=== PATIENT | female | born 1975 | race Caucasian/White ===

== ENCOUNTER 2017-07-20 13:03 | Emergency (ER) | payer MEDICAID, OTHER ==
[~2017-07-20] VITALS: Ht 165.1 cm; Wt 60.0 kg
[~2017-07-20 13:03] MED LIST: CEPH250C PO; CEPH500C5 PO; CLOT15CR5 TP; CYAN-19 PO; FOLI1TAB16 PO; IBUP-1985 PO; LANS30CA56 PO; METO-292 PO; NAPR-1154 PO; PROM25TA14 PO
[2017-07-20 13:24] VITALS: BP 134/76
[2017-07-20] MEDS ORDERED: PERM60CR19 TP (14:47)
[2017-07-20] MEDS ORDERED: AZIT-57 PO (14:47)
[2017-07-20] MEDS ORDERED: BENZ-16 PO (14:47)
[2017-07-20] MEDS ORDERED: IBUP-1984 PO (14:47)
== END 2017-07-20 15:34 | disposition home or self-care (01) ==
LOC: ER 13:04
DX: J40 Bronchitis, not specified as acute or chronic (principal); R10.32 Left lower quadrant pain; G89.29 Other chronic pain; R21 Rash and other nonspecific skin eruption; Z59.0 Homelessness; Z79.899 Other long term (current) drug therapy
CPT/HCPCS: 99283

== ENCOUNTER → 2017-11-09 | Emergency (ER) | payer MEDICAID, OTHER ==
[~2017-11-09] VITALS: Ht 175.3 cm; Wt 59.1 kg
[~2017-11-09] MED LIST changes: -CEPH500C5 PO; +NO HOME MEDS; +acetaminophen 325mg tablet PO ONE
[2017-11-09 09:10] VITALS: BP 93/73
[2017-11-09 10:22] LABS: URINE HCG NEGATIVE (NEG)
[2017-11-09 10:23] LABS: CLARITY,URINE Cloudy (Clear); COLOR,URINE Dark Yellow (Yellow); GLUCOSE, URINE Negative (Neg); KETONES,URINE 15 mg/dl (Neg); LEUKOCYTE ESTERASE ,URINE Trace (Neg); NITRITES, URINE Negative (Neg); OCCULT BLOOD,URINE Negative (Neg); PH,URINE 5.5 (4.8-8.0); PROTEIN,URINE Trace mg/dl (Neg)
[2017-11-09 10:25] LABS: UA COLLECTION TYPE CLN CATCH MIDSTREAM
[2017-11-09 10:31] LABS: AMORPHOUS URATES 2+; BACTERIA,URINE 1+ /HPF (Neg); MUCUS STRANDS MANY /LPF (Neg); RBC,URINE NONE SEEN /HPF (0-2); SQUAMOUS EPITHELIAL CELL,UR MANY /LPF (FEW); WBC CLUMPS,URINE FEW /HPF (NEGATIVE)
[2017-11-09 10:33] LABS: URINE AMPHETAMINE SCREEN POSITIVE (Neg); URINE BARBITUATE SCREEN NEGATIVE (Neg); URINE BENZODIAZEPINES SCREEN NEGATIVE (Neg); URINE CANNABINOID SCREEN NEGATIVE (Neg); URINE COCAINE SCREEN NEGATIVE (Neg); URINE METHADONE SCREEN NEGATIVE (Neg); URINE OPIATE SCREEN NEGATIVE (Neg); URINE PHENCYCLIDINE SCREEN NEGATIVE (Neg)
== END | disposition left against medical advice (07) ==
LOC: ER 08:01
DX: F29 Unspecified psychosis not due to a substance or known physiological condition (principal); F15.10 Other stimulant abuse, uncomplicated; M79.671 Pain in right foot; M79.672 Pain in left foot; L29.9 Pruritus, unspecified; R51 Headache; Z98.51 Tubal ligation status; Z90.710 Acquired absence of both cervix and uterus; Z98.890 Other specified postprocedural states; Z59.0 Homelessness; Z56.0 Unemployment, unspecified
CPT/HCPCS: 80305; 81001; 81025; 99284

== ENCOUNTER 2018-06-20 23:57 | Emergency (ER) | payer MEDICAID ==
[~2018-06-20] VITALS: Ht 162.6 cm; Wt 65.0 kg
[~2018-06-20 23:57] MED LIST changes: -CEPH250C PO; -CLOT15CR5 TP; -CYAN-19 PO; -FOLI1TAB16 PO; -IBUP-1985 PO; -LANS30CA56 PO; -METO-292 PO; -NAPR-1154 PO; -PROM25TA14 PO; -acetaminophen 325mg tablet PO ONE
[2018-06-21 00:01] VITALS: BP 126/72
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
[2018-06-21] MEDS ORDERED: amoxicillin 250mg capsule PO ONE (01:20)
[2018-06-21] MEDS ORDERED: ondansetron 4mg rapidly disintigrating tab PO ONE (01:20)
[2018-06-21] MEDS ORDERED: ACET-2119 PO (01:24)
[2018-06-21] MEDS ORDERED: AMOX500C2 PO (01:24)
--- NOTE | 2018-06-21 01:24 | NUR ---
[facility] report [id number]
[2018-06-21] MEDS: ibuprofen tablet 400 MG TABLET PO ONE ×2 (01:43→01:47)
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
[2018-06-21 01:50] LABS: URINE HCG NEGATIVE (NEG)
[2018-06-21 01:57] LABS: CLARITY,URINE CLOUDY (Clear); COLOR,URINE YELLOW (Yellow); GLUCOSE, URINE NEGATIVE (Neg); KETONES,URINE 15 mg/dl (Neg); LEUKOCYTE ESTERASE ,URINE TRACE (Neg); NITRITES, URINE NEGATIVE (Neg); OCCULT BLOOD,URINE NEGATIVE (Neg); PROTEIN,URINE TRACE mg/dl (Neg); UROBILINOGEN,URINE 0.2 E.U/dL (0.2-1.0)
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
[2018-06-21 02:06] LABS: UA COLLECTION TYPE CLN CATCH MIDSTREAM
[2018-06-21 02:08] LABS: BACTERIA,URINE FEW /HPF (Neg); RBC,URINE 0-2 /HPF (0-2); SQUAMOUS EPITHELIAL CELL,UR MODERATE /LPF (FEW)
[2018-06-21 02:53] LABS: URINE AMPHETAMINE SCREEN POSITIVE (Neg); URINE BARBITUATE SCREEN NEGATIVE (Neg); URINE BENZODIAZEPINES SCREEN NEGATIVE (Neg); URINE CANNABINOID SCREEN POSITIVE (Neg); URINE COCAINE SCREEN NEGATIVE (Neg); URINE METHADONE SCREEN NEGATIVE (Neg); URINE OPIATE SCREEN POSITIVE (Neg); URINE PHENCYCLIDINE SCREEN NEGATIVE (Neg)
== END 2018-06-21 02:05 | disposition home or self-care (01) ==
LOC: ER 23:58
DX: K08.89 Other specified disorders of teeth and supporting structures (principal); Z59.0 Homelessness; F15.90 Other stimulant use, unspecified, uncomplicated; Z90.710 Acquired absence of both cervix and uterus; Z98.51 Tubal ligation status; Z98.890 Other specified postprocedural states; Z79.899 Other long term (current) drug therapy; Z56.0 Unemployment, unspecified
CPT/HCPCS: 80305; 81001; 81025; 87088; 99283

== ENCOUNTER 2023-01-19 19:19 | Emergency (ER) | payer MEDICAID ==
[~2023-01-19] VITALS: Ht 167.6 cm; Wt 57.0 kg
[~2023-01-19 19:19] MED LIST changes: +ACET-2119 PO
[2023-01-20 02:54] VITALS: BP 101/66; PULSE 73; RESP 16; TEMP 97.8; O2SAT 99
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
== END 2023-01-20 05:29 | disposition home or self-care (01) ==
LOC: ER 19:19
DX: L98.8 Other specified disorders of the skin and subcutaneous tissue (principal); F15.90 Other stimulant use, unspecified, uncomplicated; Z91.410 Personal history of adult physical and sexual abuse; Z79.1 Long term (current) use of non-steroidal anti-inflammatories (NSAID); Z98.51 Tubal ligation status; Z90.710 Acquired absence of both cervix and uterus
CPT/HCPCS: 99283

== ENCOUNTER 2023-06-14 15:04 | Emergency (ER) | payer MEDICAID ==
[~2023-06-14] VITALS: Ht 175.3 cm; Wt 60.0 kg
[2023-06-14 15:56] LABS: BASOPHILS % (AUTO) 0.7 % (0-1); EOSINOPHILS # (AUTO) 0.1 X10'3 (0-0.9); EOSINOPHILS % (AUTO) 2.3 % (0-6); HEMATOCRIT 44.3 % (35.0-45.0); LYMPHOCYTES # (AUTO) 2.6 X10'3 (1.1-4.8); LYMPHOCYTES % (AUTO) 41.8 % (21-51); MEAN CORPUSCULAR HGB CONC 33.8 g/dL (33.0-36.5); MEAN CORPUSCULAR VOLUME 94.9 FL (78-98); MEAN PLATELET VOLUME 8.3 FL (7.4-10.4); MONOCYTES # (AUTO) 0.6 X10'3 (0-0.9); MONOCYTES % (AUTO) 9.4 % (2-12); NEUTROPHILS # (AUTO) 2.8 X10'3 (1.8-7.7); NEUTROPHILS % (AUTO) 45.8 % (42-75); PLATELET COUNT 246 X10'3 (140-440); RED BLOOD COUNT 4.67 X10'6 (4.20-5.60); RED CELL DISTRIBUTION WIDTH 13.4 % (11.5-14.5); WHITE BLOOD COUNT 6.2 X10'3 (4.5-11.0)
[2023-06-14 16:17] LABS: ALANINE AMINOTRANSFERASE 15 U/L (12-78); ALBUMIN 3.7 G/DL (3.4-5.0); ALKALINE PHOSPHATASE 68 IU/L (46-116); ANION GAP 10 (8-16); ASPARTATE AMINO TRANSFERASE 16 U/L (10-37); BILIRUBIN,TOTAL 0.3 MG/DL (0.1-1.0); BLOOD UREA NITROGEN 13 MG/DL (7-18); BUN/CREATININE RATIO 16.5 (10.0-20.0); CALCIUM 8.9 MG/DL (8.5-10.1); CHLORIDE 106 MMOL/L (99-107); CREATININE 0.79 MG/DL (0.40-0.90); GLUCOSE 93 MG/DL (70-104); POTASSIUM 3.7 MMOL/L (3.5-5.1); SODIUM 141 MMOL/L (135-145); TOTAL CARBON DIOXIDE 25.2 MMOL/L (24-32); TOTAL PROTEIN 7.3 G/DL (6.4-8.2); eCRCL 83 ML/MIN; eGFR 78 ML/MIN
[2023-06-14 16:20] LABS: ETHANOL < 10 MG/DL (<10); THYROID STIMULATING HORMONE 1.56 ulU/ml (0.34-4.50)
[2023-06-14 19:47] LABS: URINE HCG NEGATIVE (NEG)
[2023-06-14 19:48] LABS: BILIRUBIN,URINE NEGATIVE (Neg); CLARITY,URINE CLOUDY (Clear); COLOR,URINE YELLOW (Yellow); GLUCOSE, URINE NEGATIVE (Neg); KETONES,URINE TRACE mg/dl (Neg); LEUKOCYTE ESTERASE ,URINE TRACE (Neg); NITRITES, URINE NEGATIVE (Neg); OCCULT BLOOD,URINE NEGATIVE (Neg); PH,URINE 5.5 (4.8-8.0); PROTEIN,URINE NEGATIVE (Neg); UROBILINOGEN,URINE 0.2 E.U/dL (0.2-1.0)
[2023-06-14 19:58] LABS: UA COLLECTION TYPE CLN CATCH MIDSTREAM
[2023-06-14 19:59] LABS: MUCUS STRANDS MANY /LPF (Neg); SQUAMOUS EPITHELIAL CELL,UR MODERATE /LPF (FEW)
[2023-06-14 20:01] LABS: BACTERIA,URINE 3+ /HPF (Neg); CAL OXALATE CRYSTALS 4+ /HPF (NEGATIVE); RBC,URINE NONE SEEN /HPF (0-2)
[2023-06-14 20:03] LABS: TRICHOMONAS,URINE FEW /HPF (NEGATIVE)
[2023-06-14 20:10] LABS: URINE AMPHETAMINE SCREEN POSITIVE (Neg); URINE BARBITUATE SCREEN NEGATIVE (Neg); URINE BENZODIAZEPINES SCREEN NEGATIVE (Neg); URINE CANNABINOID SCREEN NEGATIVE (Neg); URINE COCAINE SCREEN NEGATIVE (Neg); URINE METHADONE SCREEN NEGATIVE (Neg); URINE OPIATE SCREEN NEGATIVE (Neg); URINE PHENCYCLIDINE SCREEN NEGATIVE (Neg)
[2023-06-15 06:20] VITALS: BP 117/65; PULSE 80; TEMP 98.2; O2SAT 100
[2023-06-15 08:25] VITALS: RESP 16
[2023-06-15] MEDS ORDERED: CefTRIAXone 1000mg IM Kit (w/lidocaine diluent) IM ONE (10:55)
[2023-06-15] MEDS ORDERED: azithromycin 250mg tablet PO ONE (10:55)
[2023-06-15] MEDS ORDERED: DIF150T PO (10:58)
[2023-06-15] MEDS ORDERED: METR-159 PO (10:58)
== END 2023-06-15 13:40 | disposition home or self-care (01) ==
LOC: ER 15:07
DX: R45.850 Homicidal ideations (principal); N89.8 Other specified noninflammatory disorders of vagina; Z20.822 Contact with and (suspected) exposure to COVID-19; F15.10 Other stimulant abuse, uncomplicated; F29 Unspecified psychosis not due to a substance or known physiological condition; Z79.899 Other long term (current) drug therapy
CPT/HCPCS: 36415; 80053; 80305; 80320; 81001; 81025; 84443; 85025; 87811; 96372; 99285; J0696

== ENCOUNTER 2023-07-22 21:47 | Emergency (ER) | payer MEDICAID ==
[~2023-07-22] VITALS: Ht 167.6 cm; Wt 54.5 kg
[2023-07-22 21:50] VITALS: TEMP 98
[2023-07-22 22:34] VITALS: BP 109/68; PULSE 86; RESP 15; O2SAT 98
[2023-07-22 22:43] LABS: BASOPHILS % (AUTO) 0.5 % (0-1); EOSINOPHILS # (AUTO) 0.2 X10'3 (0-0.9); EOSINOPHILS % (AUTO) 2.1 % (0-6); HEMATOCRIT 36.4 % (35.0-45.0); HEMOGLOBIN 12.5 g/dl (12.0-16.0); LYMPHOCYTES # (AUTO) 1.5 X10'3 (1.1-4.8); LYMPHOCYTES % (AUTO) 17.4 % (21-51); MEAN CORPUSCULAR HEMOGLOBIN 32.1 PG (27.0-31.0); MEAN CORPUSCULAR HGB CONC 34.3 g/dL (33.0-36.5); MEAN CORPUSCULAR VOLUME 93.6 FL (78-98); MEAN PLATELET VOLUME 7.6 FL (7.4-10.4); MONOCYTES # (AUTO) 0.7 X10'3 (0-0.9); MONOCYTES % (AUTO) 7.7 % (2-12); NEUTROPHILS # (AUTO) 6.4 X10'3 (1.8-7.7); NEUTROPHILS % (AUTO) 72.3 % (42-75); PLATELET COUNT 335 X10'3 (140-440); RED BLOOD COUNT 3.89 X10'6 (4.20-5.60); RED CELL DISTRIBUTION WIDTH 13.7 % (11.5-14.5); WHITE BLOOD COUNT 8.8 X10'3 (4.5-11.0)
[2023-07-22 22:55] LABS: ALBUMIN 2.5 G/DL (3.4-5.0); ANION GAP 7 (8-16); BLOOD UREA NITROGEN 5 MG/DL (7-18); BUN/CREATININE RATIO 7.2 (10.0-20.0); CHLORIDE 112 MMOL/L (99-107); CREATININE 0.69 MG/DL (0.40-0.90); GLUCOSE 116 MG/DL (70-104); POTASSIUM 3.8 MMOL/L (3.5-5.1); PRO BRAIN NATRIURETIC PEPTIDE 477 PG/ML (0-125); SODIUM 145 MMOL/L (135-145); TOTAL CARBON DIOXIDE 25.7 MMOL/L (24-32); eCRCL 87 ML/MIN; eGFR > 90 ML/MIN
== END 2023-07-22 23:04 | disposition home or self-care (01) ==
LOC: ER 21:48
DX: R06.02 Shortness of breath (principal); F15.90 Other stimulant use, unspecified, uncomplicated; Z90.710 Acquired absence of both cervix and uterus; Z98.51 Tubal ligation status
CPT/HCPCS: 36415; 71045; 80048; 83880; 84484; 85025; 93005; 99285

== ENCOUNTER 2023-09-20 03:47 | Emergency (ER) | payer MEDICAID ==
[~2023-09-20] VITALS: Ht 170.2 cm; Wt 54.5 kg
[~2023-09-20 03:47] MED LIST changes: -ACET-2119 PO
[2023-09-20 03:53] VITALS: BP 134/81; PULSE 79; RESP 16; TEMP 98.1; O2SAT 98
[2023-09-20] MEDS ORDERED: MICO45CR73 VG (05:03)
[2023-09-20] MEDS: ondansetron 4mg rapidly disintigrating tab PO ONE (05:12)
[2023-09-20] MEDS: CefTRIAXone 1000mg IM Kit (w/lidocaine diluent) IM ONE (05:12)
[2023-09-20] MEDS: azithromycin 250mg tablet PO ONE (05:12)
== END 2023-09-20 05:23 | disposition home or self-care (01) ==
LOC: ER 03:48
DX: N89.8 Other specified noninflammatory disorders of vagina (principal); F15.90 Other stimulant use, unspecified, uncomplicated; Z79.899 Other long term (current) drug therapy; Z90.710 Acquired absence of both cervix and uterus; Z98.51 Tubal ligation status
CPT/HCPCS: 96372; 99283; J0696

== ENCOUNTER 2023-11-30 16:09 | Emergency (ER) | payer MEDICAID ==
[~2023-11-30] VITALS: Ht 177.8 cm; Wt 72.7 kg
[~2023-11-30 16:09] MED LIST changes: +MICO45CR73 VG
[2023-11-30 17:51] VITALS: BP 102/59; PULSE 75; RESP 16; O2SAT 99
[2023-11-30 18:05] LABS: BASOPHILS % (AUTO) 0.5 % (0-1); EOSINOPHILS # (AUTO) 0.2 X10'3 (0-0.9); EOSINOPHILS % (AUTO) 3.6 % (0-6); HEMATOCRIT 37.1 % (35.0-45.0); HEMOGLOBIN 12.8 g/dl (12.0-16.0); LYMPHOCYTES # (AUTO) 1.8 X10'3 (1.1-4.8); LYMPHOCYTES % (AUTO) 28.5 % (21-51); MEAN CORPUSCULAR HEMOGLOBIN 32.7 PG (27.0-31.0); MEAN CORPUSCULAR HGB CONC 34.4 g/dL (33.0-36.5); MEAN PLATELET VOLUME 8.2 FL (7.4-10.4); MONOCYTES # (AUTO) 0.6 X10'3 (0-0.9); MONOCYTES % (AUTO) 9.8 % (2-12); NEUTROPHILS # (AUTO) 3.6 X10'3 (1.8-7.7); NEUTROPHILS % (AUTO) 57.6 % (42-75); PLATELET COUNT 190 X10'3 (140-440); RED BLOOD COUNT 3.91 X10'6 (4.20-5.60); RED CELL DISTRIBUTION WIDTH 12.5 % (11.5-14.5); WHITE BLOOD COUNT 6.3 X10'3 (4.5-11.0)
[2023-11-30 18:18] LABS: ALANINE AMINOTRANSFERASE 22 U/L (12-78); ALBUMIN 3.2 G/DL (3.4-5.0); ALKALINE PHOSPHATASE 55 IU/L (46-116); ANION GAP 12 (8-16); ASPARTATE AMINO TRANSFERASE 16 U/L (10-37); BILIRUBIN,TOTAL 0.5 MG/DL (0.1-1.0); BLOOD UREA NITROGEN 10 MG/DL (7-18); BUN/CREATININE RATIO 14.9 (10.0-20.0); CALCIUM 8.5 MG/DL (8.5-10.1); CHLORIDE 107 MMOL/L (99-107); CREATININE 0.67 MG/DL (0.40-0.90); GLUCOSE 91 MG/DL (70-104); LIPASE 50 U/L (16-77); POTASSIUM 3.7 MMOL/L (3.5-5.1); SODIUM 143 MMOL/L (135-145); TOTAL CARBON DIOXIDE 24.1 MMOL/L (24-32); TOTAL PROTEIN 6.3 G/DL (6.4-8.2); eCRCL 112 ML/MIN; eGFR > 90 ML/MIN
[2023-11-30] MEDS: normal saline 1000ML IV soln IVB ONE (18:33)
[2023-11-30 19:21] VITALS: TEMP 98.1
== END 2023-11-30 19:24 | disposition home or self-care (01) ==
LOC: ER 16:09
DX: F10.129 Alcohol abuse with intoxication, unspecified (principal); Z98.890 Other specified postprocedural states; F15.90 Other stimulant use, unspecified, uncomplicated; Z59.00 Homelessness unspecified; Z56.0 Unemployment, unspecified; Z90.710 Acquired absence of both cervix and uterus; Z79.899 Other long term (current) drug therapy; Y90.9 Presence of alcohol in blood, level not specified
CPT/HCPCS: 36415; 80053; 83690; 85025; 96360; 99284; J7030

== ENCOUNTER 2023-12-02 01:58 | Emergency (ER) | payer MEDICAID, OTHER ==
[~2023-12-02] VITALS: Ht 167.6 cm; Wt 59.1 kg
[2023-12-02 02:00] VITALS: BP 105/72; PULSE 70; TEMP 98; O2SAT 99
[2023-12-02 02:06] VITALS: RESP 16
[2023-12-02] MEDS: LEVONORGESTREL 1.5MG tablet 1.5 MG TABLET PO ONE (03:10)
[2023-12-02] MEDS: TINIDAZOLE 500 MG TABLET PO ONE (05:00)
[2023-12-02] MEDS: CefTRIAXone 500MG IM Kit w/LIDOcaine (for pt below or = to 150kg) IM ONE (05:01)
[2023-12-02] MEDS: azithromycin 250mg tablet PO ONE (05:01)
== END 2023-12-02 08:23 | disposition home or self-care (01) ==
LOC: EEVIPCON 01:59 → ER 01:59
DX: T74.21XA Adult sexual abuse, confirmed, initial encounter (principal); F15.90 Other stimulant use, unspecified, uncomplicated; Z90.710 Acquired absence of both cervix and uterus; Z98.51 Tubal ligation status; Z98.890 Other specified postprocedural states; Z72.89 Other problems related to lifestyle; Z59.00 Homelessness unspecified; Z56.0 Unemployment, unspecified; Y08.89XA Assault by other specified means, initial encounter; Y93.89 Activity, other specified; Y92.89 Other specified places as the place of occurrence of the external cause; Y99.8 Other external cause status
CPT/HCPCS: 99284; J0696

== ENCOUNTER 2023-12-02 08:41 | Emergency (ER) | payer MEDICAID, OTHER ==
[~2023-12-02] VITALS: Ht 172.7 cm; Wt 59.2 kg
[2023-12-02 08:44] VITALS: TEMP 97.9
[2023-12-02 09:09] LABS: BASOPHILS % (AUTO) 0.6 % (0-1); EOSINOPHILS # (AUTO) 0.2 X10'3 (0-0.9); EOSINOPHILS % (AUTO) 3.9 % (0-6); HEMATOCRIT 37.1 % (35.0-45.0); HEMOGLOBIN 12.8 g/dl (12.0-16.0); LYMPHOCYTES # (AUTO) 1.6 X10'3 (1.1-4.8); LYMPHOCYTES % (AUTO) 32.5 % (21-51); MEAN CORPUSCULAR HEMOGLOBIN 32.8 PG (27.0-31.0); MEAN CORPUSCULAR HGB CONC 34.5 g/dL (33.0-36.5); MEAN CORPUSCULAR VOLUME 95.1 FL (78-98); MEAN PLATELET VOLUME 7.9 FL (7.4-10.4); MONOCYTES # (AUTO) 0.5 X10'3 (0-0.9); NEUTROPHILS # (AUTO) 2.5 X10'3 (1.8-7.7); PLATELET COUNT 190 X10'3 (140-440); RED BLOOD COUNT 3.91 X10'6 (4.20-5.60); RED CELL DISTRIBUTION WIDTH 12.5 % (11.5-14.5); WHITE BLOOD COUNT 4.8 X10'3 (4.5-11.0)
[2023-12-02 09:26] LABS: ALBUMIN 2.7 G/DL (3.4-5.0); ANION GAP 9 (8-16); BLOOD UREA NITROGEN 8 MG/DL (7-18); BUN/CREATININE RATIO 11.1 (10.0-20.0); CALCIUM 7.7 MG/DL (8.5-10.1); CHLORIDE 108 MMOL/L (99-107); CREATININE 0.72 MG/DL (0.40-0.90); GLUCOSE 99 MG/DL (70-104); POTASSIUM 3.8 MMOL/L (3.5-5.1); PRO BRAIN NATRIURETIC PEPTIDE 119 PG/ML (0-125); SODIUM 139 MMOL/L (135-145); eCRCL 90 ML/MIN; eGFR 87 ML/MIN
[2023-12-02 12:57] VITALS: BP 96/68; PULSE 67; RESP 18; O2SAT 100
== END 2023-12-02 13:05 | disposition home or self-care (01) ==
LOC: ER 08:41
DX: R42 Dizziness and giddiness (principal); F15.90 Other stimulant use, unspecified, uncomplicated; Z79.899 Other long term (current) drug therapy; Z90.710 Acquired absence of both cervix and uterus; Z98.51 Tubal ligation status; Z98.890 Other specified postprocedural states
CPT/HCPCS: 36415; 71045; 80048; 82948; 83880; 84484; 85025; 93005; 99285

== ENCOUNTER 2024-01-27 03:32 | Emergency (ER) | payer MEDICAID ==
[~2024-01-27] VITALS: Ht 167.6 cm; Wt 70.5 kg
[2024-01-27] MEDS: ketorolac trometh 30MG/ML vial 30 MG/ML VIAL IM ONE (03:58)
[2024-01-27] MEDS ORDERED: NEOM10SO7 LEFT EAR (03:59)
[2024-01-27] MEDS ORDERED: ACET-2006 PO (03:59)
[2024-01-27] MEDS ORDERED: GUAI-647 PO (03:59)
[2024-01-27] MEDS ORDERED: IBUP-24 PO (03:59)
[2024-01-27] MEDS: amoxicillin 250mg capsule PO ONE (03:59)
[2024-01-27] MEDS ORDERED: AMOX-101 PO (03:59)
[2024-01-27 04:09] VITALS: BP 134/84; PULSE 18; RESP 18; TEMP 99.2; O2SAT 98
== END 2024-01-27 04:32 | disposition home or self-care (01) ==
LOC: ER 03:33
DX: H66.92 Otitis media, unspecified, left ear (principal); H60.92 Unspecified otitis externa, left ear; F15.90 Other stimulant use, unspecified, uncomplicated; H92.02 Otalgia, left ear; Z79.899 Other long term (current) drug therapy; Z90.710 Acquired absence of both cervix and uterus; Z98.51 Tubal ligation status
CPT/HCPCS: 96372; 99283; J1885

== ENCOUNTER 2024-11-05 22:36 | Emergency (ER) | payer MEDICAID ==
[~2024-11-05] VITALS: Ht 167.6 cm; Wt 57.9 kg
[~2024-11-05 22:36] MED LIST changes: -TRIA15CR61 TOP
[2024-11-05 22:42] VITALS: BP 112/77; PULSE 85; RESP 16; O2SAT 98
[2024-11-05] MEDS ORDERED: triamcinolone acetonide 0.5% cream 15gm TP ONE (23:20)
[2024-11-05] MEDS ORDERED: TRIA15CR61 TOP (23:26)
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
[2024-11-05 23:37] VITALS: TEMP 98.7
== END 2024-11-05 23:38 | disposition home or self-care (01) ==
LOC: ER 22:37
DX: L23.7 Allergic contact dermatitis due to plants, except food (principal); F15.90 Other stimulant use, unspecified, uncomplicated; Z90.710 Acquired absence of both cervix and uterus; Z79.899 Other long term (current) drug therapy; Z59.00 Homelessness unspecified; Z56.0 Unemployment, unspecified; Z72.89 Other problems related to lifestyle
CPT/HCPCS: 99283

== ENCOUNTER → 2024-11-05 | Emergency (ER) | payer MEDICAID ==
[~2024-11-05] VITALS: Ht 167.6 cm; Wt 60.9 kg
[~2024-11-05] MED LIST changes: +IBUP-24 PO; +NEOM10SO7 LEFT EAR; +TRIA15CR61 TOP
[2024-11-05 16:24] VITALS: BP 123/75; PULSE 75; RESP 16; TEMP 98.5; O2SAT 100
--- NOTE | 2024-11-05 18:11 | Physician Documentation ---
History of Present Illness ~ Chief Complaint: Rash Stated Complaint: POISON OAK Time Seen by MD: 16:36 Primary Medical Doctor: None HPI Patient is seen today with complaints of a rash that appeared just a few days ago on her right lower extremity in the medial aspect of her ankle. Patient feels it might be poison oak as it is pruritic. She denies any fevers or chills or chest pain or shortness of breath or abdominal pain or nausea, vomiting, diarrhea. She has no other concern or complaint at this time. Medication Reconciliation Allergies: Coded Allergies: No Known Allergies (Unverified , 01/27/24) Scheduled Ibuprofen (Advil), 400 MG PO Q6H Miconazole Nitrate (Monistat 7), 1 APPLICATOR VG HS Neomy Sulf/Polymyx B Sulf/Hc (Cortisporin Otic Solution), 4 DROP LEFT EAR Q6H Miscellaneous Medications Home Med List (No Home Medications), (Reported) Past Medical History Past Medical History: No Pertinent History, Headache, *PSYCH*, Psychosis Past Surgical History: hysterectomy, orthopedic surgeries, tubal ligation, other Other Past Surgical History: breast augmentation; unilateral salpingo- oophorectomy & left salpingectomy Other Past Family History: NONE Alcohol Use: Occasionally Drug Use: methamphetamine Lives with: Other Lives In: Homeless Occupation: unemployed Review of Systems Constitutional: Denies: chills, fever, weakness Eyes: Denies: pain, blurred vision ENT: Denies: ear pain, nose pain, throat pain, mouth pain Respiratory: Denies: cough, shortness of breath Cardiovascular: Denies: chest pain, palpitations Gastrointestinal: Denies: abdominal pain, nausea, vomiting Genitourinary: Denies: burning, dysuria Female Genitalia: Denies: vaginal discharge, pelvic pain Neurological: Denies: headache, dizziness Musculoskeletal: Denies: pain, swelling Integumentary: Denies: rash, lesions Allergic/Immunologic: Denies: hives, itching Hematologic/Lymphatic: Denies: no symptoms reported Psychiatric: Denies: depression, anxiety Physical Exam Vital Signs: Temperature: 98.5, Source: Oral, Heart Rate: 75, Respiratory Rate: 16, BP: 123/75, Pulse Oximetry: 100, Weight: 60.900 Oxygen Flow Rate: 0 Physical Exam General: Awake and Alert, no acute distress. HEENT: Conjunctiva pink, Sclera clear, Mucus Membranes moist. Neck: Supple without masses and tenderness. Extremities: No cyanosis,clubbing or edema. Skin: Patient on exam does have erythematous skin lesion on medial aspect of the right lower extremity consistent with poison oak dermatitis. Progress Results/Orders Results/Orders Vital Signs 11/05/24 16:24 Temp 98.5 Pulse 75 Resp 16 B/P (MAP) 123/75 Pulse Ox 100 O2 Flow Rate 0 Medical Decision Making Findings Patient is seen today with complaints of a rash that appeared just a few days ago on her right lower extremity in the medial aspect of her ankle. Patient feels it might be poison oak as it is pruritic. She denies any fevers or chills or chest pain or shortness of breath or abdominal pain or nausea, vomiting, diarrhea. She has no other concern or complaint at this time. Patient unfortunately left prior to any treatments being given. Patient is welcome to return to ED with any worsening, concerning or changing symptoms or for treatment. Patient. Departure Disposition: 07 LEFT AWOL/ELOPED Impression: Primary Impression: Allergic contact dermatitis Qualified Codes: L23.7 - Allergic contact dermatitis due to plants, except food Condition: Stable Additional Instructions: Patient unfortunately left prior to any treatments being given. Patient is welcome to return to ED with any worsening, concerning or changing symptoms or for treatment. Patient. Referrals: NO PRIMARY CARE PROVIDER (PCP) Signature Scribe Signature: No scribe Attestation: No scribe SANDHYA BARCLAY November 05, 2024 18:11
== END | disposition left against medical advice (07) ==
LOC: ER 16:15
DX: L23.89 Allergic contact dermatitis due to other agents (principal); F15.90 Other stimulant use, unspecified, uncomplicated; Z90.79 Acquired absence of other genital organ(s); Z90.710 Acquired absence of both cervix and uterus; Z79.899 Other long term (current) drug therapy; Z56.0 Unemployment, unspecified; Z59.00 Homelessness unspecified; Z72.89 Other problems related to lifestyle
CPT/HCPCS: 99281

== ENCOUNTER 2024-12-16 00:17 | Emergency (ER) | payer MEDICAID ==
[~2024-12-16] VITALS: Ht 172.7 cm; Wt 65.9 kg
[2024-12-16 00:21] VITALS: BP 141/87; PULSE 82; RESP 16; TEMP 98.4; O2SAT 100
--- NOTE | 2024-12-16 01:39 | RADIOLOGY REPORT ---
CLINICAL INDICATION: FOREIGN BODY LEFT TECHNIQUE: DI ANKLE, COMPLETE(3VW MIN) Comparison: None FINDINGS/IMPRESSION: : Cortical irregularity of the posterior distal fibular margin suggests minimally displaced fracture. [id number] tibiotalar joint effusion and pronounced medial malleolar soft tissue swelling and e jonny. No radiodense foreign body.
--- NOTE | 2024-12-16 02:00 | Physician Documentation ---
History of Present Illness ~ Chief Complaint: Abscess Stated Complaint: ANKLE PAIN Time Seen by MD: 01:57 Primary Medical Doctor: None HPI Patient presents to the emergency room with abscess to the medial aspect of her left ankle. He has had over the past few days. States she is taking some Keflex from the streets. No fevers. Unknown tetanus Tetanus Within 5 Years: Yes Medication Reconciliation Allergies: Coded Allergies: No Known Allergies (Unverified , 01/27/24) Scheduled Ibuprofen (Advil), 400 MG PO Q6H Miconazole Nitrate (Monistat 7), 1 APPLICATOR VG HS Neomy Sulf/Polymyx B Sulf/Hc (Cortisporin Otic Solution), 4 DROP LEFT EAR Q6H Miscellaneous Medications Home Med List (No Home Medications), (Reported) Past Medical History Past Medical History: No Pertinent History, Headache, *PSYCH*, Psychosis Past Surgical History: hysterectomy, orthopedic surgeries, tubal ligation, other Other Past Surgical History: breast augmentation; unilateral salpingo- oophorectomy & left salpingectomy Other Past Family History: NONE Alcohol Use: Occasionally Drug Use: methamphetamine Lives with: Other Lives In: Homeless Occupation: unemployed Review of Systems ROS All review of systems negative except as per HPI Physical Exam Vital Signs: Temperature: 98.4, Source: Oral, Heart Rate: 82, Respiratory Rate: 16, BP: 141/87, Pulse Oximetry: 100, Weight: 65.910 Oxygen Flow Rate: 0 Physical Exam General: Patient is awake, alert, oriented x4 in no acute distress and well appearing.~ Head: Normocephalic and atraumatic. Eyes: Conjunctival normal. EOMI. PERRL. ENT: Mucous membranes moist. Neck: Supple, trachea is midline. Chest: Clear to auscultation bilaterally without rales, rhonchi, or wheezes. There is no accessory muscle use or retractions. Cardiac: RRR without murmurs, gallops, or rubs. Extremities: Normal strength. Normal range of motion. Draining abscess to the left medial aspect of her ankle. Progress Results/Orders Results/Orders Orders - JOHN LEE MD, Complete(3vw Min) (12/16/24 01:25) Completed Orders - JOHN LEE MD Ankle, Complete(3vw Min) (12/16/24 01:25) Vital Signs 12/16/24 00:21 Temp 98.4 Pulse 82 Resp 16 B/P (MAP) 141/87 Pulse Ox 100 O2 Flow Rate 0 Medical Decision Making Findings Patient presents to the emergency room with obvious abscess to her left ankle. She in his not desire any treatment and would like to leave. I had least wanted to give her a prescription for antibiotics however she is declining this. Demonstrates capacity risks discussed Departure Disposition: HOME / SELF CARE / HOMELESS Impression: Primary Impression: Abscess Condition: Fair Discharge Instructions: Abscess, Care After Additional Instructions: Come back for worsening of symptoms or fevers Referrals: NO PRIMARY CARE PROVIDER (PCP) Education Educated: Patient Educated regarding: diagnosis, need for follow up Signature Scribe Signature: No scribe Attestation: The note accurately reflects work and decisions made by me.John Lee MD 12/16/24 02:06 JOHN LEE MD Dec 16, 2024 02:00
== END 2024-12-16 02:10 | disposition home or self-care (01) ==
LOC: ER 00:18
DX: L02.416 Cutaneous abscess of left lower limb (principal); Z72.89 Other problems related to lifestyle; F15.90 Other stimulant use, unspecified, uncomplicated; Z90.710 Acquired absence of both cervix and uterus; Z79.899 Other long term (current) drug therapy; Z56.0 Unemployment, unspecified; Z59.00 Homelessness unspecified; Z98.51 Tubal ligation status
CPT/HCPCS: 73610; 99283; A6266; A6449

== ENCOUNTER 2024-12-31 00:07 | Emergency (ER) | payer MEDICAID ==
[~2024-12-31] VITALS: Ht 167.6 cm; Wt 63.6 kg
[2024-12-31 00:14] VITALS: BP 126/77; PULSE 78; RESP 16; O2SAT 99
--- NOTE | 2024-12-31 02:14 | Physician Documentation ---
History of Present Illness ~ Chief Complaint: Wound Stated Complaint: SPIDER BITE Time Seen by MD: 02:12 OK to notify your PCP?: Yes Primary Medical Doctor: None Source: patient, RN/MD Mode of Arrival: POV, Ambulatory, Stretcher, Dropped Off Exam Limitations: no limitations HPI 49 year old female seen in the RAP room presents to the emergency department for complaints of insect bites. She states that she has insect bites to her left forearm as well as her left leg. She states she is currently homeless and staying outside as [facility]. Tetanus within 5 years?: Yes Medication Reconciliation Allergies: Coded Allergies: No Known Allergies (Unverified , 12/31/24) Scheduled Doxycycline Monohydrate (Doxycycline Monohydrate), 1 CAP PO Q12H Ibuprofen (Advil), 400 MG PO Q6H Miconazole Nitrate (Monistat 7), 1 APPLICATOR VG HS Neomy Sulf/Polymyx B Sulf/Hc (Cortisporin Otic Solution), 4 DROP LEFT EAR Q6H Miscellaneous Medications Home Med List (No Home Medications), (Reported) Past Medical History Past Medical History: No Pertinent History, Headache, *PSYCH*, Psychosis Past Surgical History: hysterectomy, orthopedic surgeries, tubal ligation, other Other Past Surgical History: breast augmentation; unilateral salpingo- oophorectomy & left salpingectomy Other Past Family History: NONE Alcohol Use: Occasionally Drug Use: methamphetamine Lives with: Other Lives In: Homeless Occupation: unemployed Review of Systems All Other Systems at this time: Reviewed and Negative ROS As stated above in the HPI, otherwise all systems are reviewed and negative. Physical Exam Vital Signs: RN Vital Signs have been reviewed: Yes, Temperature: 98.2, Heart Rate: 78, Respiratory Rate: 16, BP: 126/77, Pulse Oximetry: 99, Weight: 63.640 Pulse Oximetry Reflects: adequate oxygenation Physical Exam General: The patient is well developed, well nourished, nontoxic appearing and is in no acute distress. Skin: [place], warm and dry with no rashes. HEENT: Head was normocephalic and atraumatic. Eyes - pupils equal, round, reactive to light and accommodation. Extraocular movements were intact. Conjunctivae were nonicteric. Ears - bilateral tympanic membranes were normal. The mouth and oropharynx were clear with moist mucous membranes. There were no pharyngeal exudates or erythema. Neck: Supple and nontender. There was no jugular venous distention, lymphadenopathy, thyromegaly or masses. Chest: Clear to auscultation bilaterally without wheezes, rales or rhonchi. No accessory muscle use. No dullness to percussion. Heart: Rate regular and rhythmic. S1, S2. No murmurs. Palpation of the chest wall was normal. No rubs or thrills. Abdomen: Soft, nontender and nondistended. Positive bowel sounds. No guarding or rebound. No hepatosplenomegaly or palpable masses. Extremities: No cyanosis, clubbing or edema. The patient moves all extremities. Pulses were equal and symmetric. Neurologic: Cranial nerves II-XII were intact. Sensation was intact to light touch throughout. Motor strength was 5/5 in all four extremities. Deep tendon reflexes were intact in both upper and lower extremities. Psychologic: The patient was oriented to person, place and time. The patient demonstrated appropriate judgement and insight. Progress Results/Orders Reviewed/noted all lab results: Yes Results/Orders Completed Orders - GUNNAR BULLOCK MD Doxycycline 100mg Capsule (Vibramycin 10 (12/31/24 02:21) Diphenhydramine Capsule (Benadryl Capsul (12/31/24 02:25) Medications Received in ER Medications (Trade) Dose Ordered Sig/Nely Route PRN Reason Start Time Stop Time Status Last Admin Dose Admin (VIBRAMYCIN 100mg capsule) 100 mg ONCE STAT PO 12/31/24 02:21 12/31/24 02:22 DC 12/31/24 02:29 100 MG (Benadryl capsule) 25 mg ONCE ONCE PO 12/31/24 02:25 12/31/24 02:26 DC 12/31/24 02:29 25 MG Vital Signs 12/31/24 12/31/24 00:14 02:26 Temp 98.2 98.2 Pulse 78 Resp 16 B/P (MAP) 126/77 Pulse Ox 99 Re-Evaluation Re-Evaluation : Re-Evaluation: Improved Progress This pleasant homeless 49[place]year[place] been getting multiple bug bites. Her forearm is now red and infected. She is here for evaluation and care. She is unable to stay at the [place]. Patient for her rash was given Benadryl for itching and doxycycline because she is exposed to dirt also in his unable to keep her wounds cleaned. Patient was then discharged home with prescription for doxycycline. Patient should return if she has any worsening symptoms or concerns. Medical Decision Making Additional info obtained from: old records Differential Dx:Considerations: Include: Abscess, Cellulitis, Dressing change, Healing wound, Other Departure Time of Disposition: 02:22 Disposition: 01 HOME / SELF CARE / HOMELESS Impression: Primary Impression: Cellulitis of left forearm Additional Impressions: Bug bites Qualified Codes: W57.XXXA - Bitten or stung by nonvenomous insect and other nonvenomous arthropods, initial encounter Homeless Condition: Stable Discharge Instructions: Cellulitis, Adult, [id number] Referrals: NO PRIMARY CARE PROVIDER (PCP) Prescriptions Doxycycline Monohydrate (Doxycycline Monohydrate) 100 Mg Capsule 1 CAP PO Q12H for 14 Days, #28 CAP Prov: GUNNAR BULLOCK MD 12/31/24 Education Educated: Patient Educated regarding: diagnosis, treatment, prognosis, need for follow up Signature Scribe Signature: Scribed for Gunnar Bullock MD by Vilma Mcdonald . 12/31/24 02:22 Attestation: The note accurately reflects work and decisions made by me.Gunnar Bullock MD 12/31/24 02:14 GUNNAR BULLOCK MD Dec 31, 2024 02:14 VILMA QUIROZ Dec 31, 2024 02:22
[2024-12-31] MEDS ORDERED: DOXY-460 PO (02:23)
[2024-12-31 02:26] VITALS: TEMP 98.2
[2024-12-31] MEDS: DOXYCYCLINE 100MG CAPSULE PO STA (02:29)
== END 2024-12-31 02:34 | disposition home or self-care (01) ==
LOC: ER 00:08
DX: S50.862A Insect bite (nonvenomous) of left forearm, initial encounter (principal); L03.114 Cellulitis of left upper limb; F15.90 Other stimulant use, unspecified, uncomplicated; Z90.710 Acquired absence of both cervix and uterus; Z79.899 Other long term (current) drug therapy; Z72.89 Other problems related to lifestyle; Z56.0 Unemployment, unspecified; Z59.00 Homelessness unspecified; W57.XXXA Bitten or stung by nonvenomous insect and other nonvenomous arthropods, initial encounter; Y93.89 Activity, other specified; Y92.89 Other specified places as the place of occurrence of the external cause; Y99.8 Other external cause status
CPT/HCPCS: 99283; Q0163

== ENCOUNTER 2025-01-27 05:18 | Emergency (ER) | payer MEDICAID ==
[~2025-01-27] VITALS: Ht 167.6 cm; Wt 61.9 kg
--- NOTE | 2025-01-27 06:08 | Physician Documentation ---
History of Present Illness General Chief Complaint: Arm Pain Stated Complaint: RIGHT ARM SWELLING Time Seen by MD: 05:55 Primary Medical Doctor: None History of Present Illness Initial Comments Patient is a 49-year-old female who is currently homeless who presents with erythema and swelling over the ulnar aspect of the right forearm that she 1st noticed 2:00 a.m. this morning. She currently takes no medications. She denies any history of MRSA. No constitutional symptoms such as fever, chills or generalized weakness. Medication Reconciliation Allergies: Coded Allergies: No Known Allergies (Unverified , 01/27/25) Scheduled Ibuprofen (Advil), 400 MG PO Q6H Miconazole Nitrate (Monistat 7), 1 APPLICATOR VG HS Neomy Sulf/Polymyx B Sulf/Hc (Cortisporin Otic Solution), 4 DROP LEFT EAR Q6H Miscellaneous Medications Home Med List (No Home Medications), (Reported) Past Medical History Past Medical History: No Pertinent History, Headache, *PSYCH*, Psychosis Past Surgical History: hysterectomy, orthopedic surgeries, tubal ligation, other Other Past Surgical History: breast augmentation; unilateral salpingo- oophorectomy & left salpingectomy Other Past Family History: NONE Smoking: Non-Smoker Alcohol Use: Occasionally Drug Use: methamphetamine Lives with: Other Lives In: Homeless Occupation: unemployed Review of Systems ROS Constitutional: Denies chills, fatigue, fever, weight gain or weight loss. HEENT: Denies hearing loss, sinus pressure or visual changes. Respiratory: Denies cough, shortness of breath or wheezing. Cardiovascular: Denies chest pain, pain while walking (claudication), edema or palpitations. Gastrointestinal: Denies abdominal pain, blood in stool, constipation, diarrhea, heartburn, loss of appetite, nausea or vomiting. Genitourinary: Denies painful urination (dysuria), excessive amount of urine (polyuria) or urinary frequency. Metabolic/Endocrine: Denies cold intolerance, heat intolerance, excessive thirst (polydipsia) or excessive hunger (polyphagia). Neurological: Denies dizziness, extremity numbness, extremity weakness, headaches, seizures or tremors. Psychiatric: Denies anxiety or depression. Integumentary: Redness and swelling over the ulnar aspect of the right forearm about 7 cm in diameter. Musculoskeletal: Denies back pain, joint pain, joint swelling or neck pain. Hematologic: Denies easily bleeding, easily bruises, lymphedema or issues with blood clots. Immunologic: Denies food allergies or seasonal allergies. Physical Exam Physical Exam Vital Signs: Temperature: 97.5, Source: Oral, Heart Rate: 75, Respiratory Rate: 12, BP: 136/94, Pulse Oximetry: 100, Weight: 61.900 Physical Exam Physical Exam Vitals and nursing note reviewed. Constitutional: General: Patient is awake, alert, oriented x 4 in no acute distress and well appearing. Speech is clear and lucid. Appearance: Normal appearance. Patient is not ill-appearing, toxic-appearing or diaphoretic. HENT: Head: Normocephalic and atraumatic. Mouth/Throat: Mouth: Mucous membranes are moist. Pharynx: Oropharynx is clear. Eyes: General: No scleral icterus. Extraocular Movements: Extraocular movements intact. Pupils: Pupils are equal, round, and reactive to light. Neck: Supple, no Kernig or Brudzinski sign. Cardiovascular: Rate and Rhythm: Normal rate and regular rhythm. Heart sounds: No murmur heard. Pulmonary: Effort: No respiratory distress. Breath sounds: No wheezing, rhonchi or rales. Abdominal: General: There is no distension. Palpations: There is no fluid wave, hepatomegaly or mass. Tenderness: There is no abdominal tenderness. There is no guarding. Musculoskeletal: General: No swelling or deformity. Skin: Coloration: Skin is not jaundiced. Findings: Redness and swelling over the ulnar aspect of the right forearm about 7 cm in diameter. Neurological: Mental Status: Patient is alert. Progress Results/Orders Results/Orders Vital Signs 01/27/25 05:24 Temp 97.5 Pulse 75 Resp 12 B/P (MAP) 136/94 Pulse Ox 100 Medical Decision Making Findings This 49-year-old female presents with cellulitis of the right forearm. I am going to start her on doxycycline. Departure Disposition: HOME / SELF CARE / HOMELESS Impression: Primary Impression: Cellulitis of right forearm Condition: Stable Additional Instructions: It is important to see your doctor or primary care provider. Emergency care may be incomplete without proper follow-up. Symptoms sometimes change or new symptoms might arise after you leave the emergency department. It is important that you call your doctor if you become worse in any way, or return to the emergency department. You are strongly urged to follow-up with your physician to assure complete and thorough care. Please call your doctor's office today, and informed them that you were seen in the emergency department, and that you need to be seen immediately for close follow-up. If you do not have a primary care doctor we encourage you to proactively seek a local physician for close follow-up. Consider local clinics, [facility], or local [facility] [place]. Prior to discharge we spoke at length concerning symptoms that would merit reevaluation, but please return to the emergency department for any symptoms that are concerning to you, and we will be happy to continue your evaluation and treatment. Please note you can always return to the emergency department if you are having difficulty coordinating close follow-up. If medications were prescribed, you should fill them at your local pharmacy immediately and take only as prescribed. Bring your new medications to your doctors follow-up visit to discuss any changes that would be necessary. Please check [facility] for any results you did not receive in the Emergency Department: often we are unable to get all your tests back before you leave, and these tests need to be reviewed by your PCP and yourself. You can also call Medical Records if you are unable to access the internet to see [facility]. Return to the emergency department immediately for worsening chest pain, difficulty breathing, sweating, or other concerning emergent symptoms. Referrals: NO PRIMARY CARE PROVIDER (PCP) Prescriptions Doxycycline Monohydrate (Doxycycline Monohydrate) 100 Mg Capsule 100 MG PO BID, #14 CAP may sub doxycycline hyclate or azithromycin z-pack as prescribed Prov: MERCEDEZ RODRIGUEZ MD 01/27/25 Signature Scribe Signature: . Attestation: . MERCEDEZ RODRIGUEZ MD Jan 27, 2025 06:08
[2025-01-27] MEDS ORDERED: DOXY100C43 PO (06:10)
[2025-01-27] MEDS: DOXYCYCLINE 100MG CAPSULE PO STA (06:20)
[2025-01-27 06:21] VITALS: BP 130/92; PULSE 74; RESP 18; TEMP 98.6; O2SAT 99
== END 2025-01-27 06:22 | disposition home or self-care (01) ==
LOC: ER 05:19
DX: L03.113 Cellulitis of right upper limb (principal); F15.90 Other stimulant use, unspecified, uncomplicated; Z90.710 Acquired absence of both cervix and uterus; Z90.79 Acquired absence of other genital organ(s)
CPT/HCPCS: 99283

== ENCOUNTER 2025-02-14 13:44 | Emergency (ER) | payer MEDICAID ==
[~2025-02-14] VITALS: Ht 167.6 cm; Wt 61.9 kg
[~2025-02-14 13:44] MED LIST changes: +DOXY100C43 PO
[2025-02-14 14:14] VITALS: BP 126/78; PULSE 89; RESP 18; TEMP 97.4; O2SAT 100
[2025-02-14] MEDS ORDERED: ketorolac trometh 15mg/ml vial 15 MG/ML ML IM ONE (14:20)
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
== END 2025-02-14 16:04 | disposition left against medical advice (07) ==
LOC: ER 13:45
DX: M54.50 Low back pain, unspecified (principal); F15.90 Other stimulant use, unspecified, uncomplicated; Z90.710 Acquired absence of both cervix and uterus; Z79.899 Other long term (current) drug therapy; Z72.89 Other problems related to lifestyle; Z56.0 Unemployment, unspecified; Z59.00 Homelessness unspecified
CPT/HCPCS: 72100; 99283

== ENCOUNTER 2025-03-03 23:21 | Emergency (ER) | payer MEDICAID ==
[~2025-03-03] VITALS: Ht 167.6 cm; Wt 70.0 kg
[~2025-03-03 23:21] MED LIST changes: -DOXY100C43 PO
--- NOTE | 2025-03-04 | Physician Documentation ---
History of Present Illness ~ Chief Complaint: Abdominal Pain Stated Complaint: LOWER ABD DISCOMFORT Time Seen by MD: 23:58 Primary Medical Doctor: None HPI Patient presents to the emergency room with left-sided abdominal pain that began prior to her arrival. Patient states it feels like she may have a burst ovarian cyst. Bowel movements regular as in his urine. She denies any body aches or vomiting. Medication Reconciliation Allergies: Coded Allergies: No Known Allergies (Unverified , 01/27/25) Scheduled Ibuprofen (Advil), 400 MG PO Q6H Miconazole Nitrate (Monistat 7), 1 APPLICATOR VG HS Neomy Sulf/Polymyx B Sulf/Hc (Cortisporin Otic Solution), 4 DROP LEFT EAR Q6H Miscellaneous Medications Home Med List (No Home Medications), (Reported) Past Medical History Past Medical History: No Pertinent History, Headache, *PSYCH*, Psychosis Past Surgical History: hysterectomy, orthopedic surgeries, tubal ligation, o ther Other Past Surgical History: breast augmentation; unilateral salpingo- oophorectomy & left salpingectomy Other Past Family History: NONE Alcohol Use: Occasionally Drug Use: methamphetamine Lives with: Other Lives In: Homeless Occupation: unemployed Review of Systems ROS All review of systems negative except as per HPI Physical Exam Vital Signs: Temperature: 97.0, Heart Rate: 77, Respiratory Rate: 18, BP: 131 /72, Pulse Oximetry: 99, Weight: 70.000 Oxygen Flow Rate: 0 Physical Exam General: Patient is sleeping, easily arousable in no acute distress Head: Normocephalic and atraumatic. Eyes: Conjunctival normal. EOMI. PERRL. ENT: Mucous membranes moist. Neck: Supple, trachea is midline. Chest: Clear to auscultation bilaterally without rales, rhonchi, or wheezes. There is no accessory muscle use or retractions. Cardiac: RRR without murmurs, gallops, or rubs. Abd: Soft, nondistended, left-sided abdominal tenderness to palpation without adnexal tenderness Progress Results/Orders Results/Orders Orders - JOHN LEE MD Ct Abdomen Pelvis (03/04/25 00:20) Completed Orders - JOHN LEE MD Cbc/Diff (03/03/25 23:25) BMP (03/03/25 23:25) Lipase (03/03/25 23:25) CMP (03/03/25 23:25) Drug Screen, Urine (03/04/25 00:16) Hcg Serum Ql (03/04/25 00:18) Ct Abdomen Pelvis (03/04/25 00:20) Ibuprofen Tablet (Motrin Tablet) (03/04/25 00:20) Acetaminophen 325mg Tablet (Tylenol Tabl (03/04/25 00:20) Ua W/Microscopic, Cult If Ind (03/04/25 00:48) Medications Received in ER Medications (Trade) Dose Ordered Sig/Nely Route PRN Reason Start Time Stop Time Status Last Admin Dose Admin (Motrin tablet) 800 mg ONCE ONCE PO 03/04/25 00:20 03/04/25 00:21 DC 03/04/25 00:23 800 MG (Tylenol tablet) 650 mg ONCE ONCE PO 03/04/25 00:20 03/04/25 00:21 DC 03/04/25 00:24 650 MG Vital Signs 03/03/25 03/04/25 03/04/25 03/04/25 23:23 00:37 00:56 01:24 Temp 97.0 Pulse 77 72 69 Resp 18 16 16 16 B/P (MAP) 131/72 106/66 (79) 110/76 (87) Pulse Ox 99 96 96 O2 Flow Rate 0 0 0 Laboratory Tests Test 03/03/25 23:41 03/04/25 00:40 03/04/25 00:48 White Blood Count 6.8 Red Blood Count 4.23 Hemoglobin 14.1 Hematocrit 40.7 Mean Corpuscular Volume 96.2 Mean Corpuscular Hemoglobin 33.4 H Mean Corpuscular Hemoglobin Concent 34.7 Red Cell Distribution Width 12.9 Platelet Count 248 Mean Platelet Volume 7.6 Neutrophils (%) (Auto) 56.7 Lymphocytes (%) (Auto) 32.2 Monocytes (%) (Auto) 8.3 Eosinophils (%) (Auto) 2.4 Basophils (%) (Auto) 0.4 Neutrophils # (Auto) 3.8 Lymphocytes # (Auto) 2.2 Monocytes # (Auto) 0.6 Eosinophils # (Auto) 0.2 Basophils # (Auto) 0.0 CBC Comment Sodium Level 141 Potassium Level 3.6 Chloride Level 106 Carbon Dioxide Level 25.3 Anion Gap 10 Blood Urea Nitrogen 17 Creatinine 0.79 Estimated GFR/1.73 m2 78 BUN/Creatinine Ratio 21.5 H Glucose Level 93 Calcium Level 8.6 Total Bilirubin 0.5 Aspartate Amino Transf (AST/SGOT) 18 Alanine Aminotransferase (ALT/SGPT) 21 Alkaline Phosphatase 55 Total Protein 6.8 Albumin 3.5 Globulin 3.3 Albumin/Globulin Ratio 1.1 Lipase 48 Chemistry Comments Human Chorionic Gonadotropin, Qual Negative Urine Specimen Description Voided Urine Color Yellow Urine Clarity Clear Urine pH 6.0 Urine Specific [place] >=1.030 Urine Protein 30 H Urine Glucose (UA) Negative Urine Ketones Trace H Urine Occult Blood Negative Urine Nitrite Negative Urine Bilirubin Negative Urine Urobilinogen 0.2 Urine Leukocyte Esterase Negative Urine RBC 0-2 Urine WBC 0-4 Urine Squamous Epithelial Cells Many Urine Bacteria Few Urine Hyaline Casts 0-3 Urine Mucus Many Urine Culture Indicated Not ind Volume Urine Centrifuged 10 ml Urine Comment Urine Opiates Screen Negative Urine Methadone Screen Negative Urine Fentanyl Screen Negative Urine Barbiturates Screen Negative Urine Phencyclidine Screen Negative Urine Amphetamines Screen Positive Urine Benzodiazepines Screen Negative Urine Cocaine Screen Negative Urine Cannabinoids Screen Negative Drug Screen Comment Medical Decision Making Findings Patient presents to the emergency room with chief complaint of left-sided a bdominal pain differentials include but are not limited to cholecystitis gastritis diverticulitis pancreatitis constipation small-bowel obstruction kidney stone pyelonephritis ovarian pathology therefore emergent labs and imaging indicated. No adnexal tenderness and he had not feel patient requires an ultrasound. Upon re-evaluation patient continues to asleep. Vital signs reassuring as are labs. Unknown cause for patient's abdominal pain. ER precautions discussed. Departure Disposition: HOME / SELF CARE / HOMELESS Impression: Primary Impression: Abdominal pain Condition: Stable Discharge Instructions: Abdominal Pain (Nonspecific) Referrals: NO PRIMARY CARE PROVIDER (PCP) Signature Scribe Signature: No scribe Attestation: The note accurately reflects work and decisions made by me.John Lee MD 03/04/25 01:53 JOHN LEE MD Mar 04, 2025 00:00
[2025-03-04 00:03] LABS: MEAN PLATELET VOLUME 7.6 FL (7.4-10.4); RED CELL DISTRIBUTION WIDTH 12.9 % (11.5-14.5)
[2025-03-04 00:14] LABS: CREATININE 0.79 MG/DL (0.40-0.90); TOTAL CARBON DIOXIDE 25.3 MMOL/L (24-32); eCRCL 82 ML/MIN; eGFR 78 ML/MIN
[2025-03-04] MEDS: ibuprofen tablet 400 MG TABLET PO ONE (00:23)
[2025-03-04 00:58] LABS: HCG SERUM QL NEGATIVE
--- NOTE | 2025-03-04 01:11 | RADIOLOGY REPORT ---
Exam: CT CT ABDOMEN PELVIS History: left sided abd pain COMPARISON: None Technique: Multidetector spiral CT of the abdomen and pelvis was performed from lung bases to pubic symphysis. Axial, coronal and sagittal multiplanar reformats were performed by the technologist on a separate workstation. Radiation Dose : 1. Abdomen/Pelvis: CTDIvol 8.1 mGy, DLP 389.05 mGy*cm. Findings: Lung Bases: No acute or significant lung base finding. Normal heart size. No pleural or pericardial effusion. Liver: The liver is normal in size. No focal lesions. Normal hepatic vascular enhancement. Gallbladder and biliary Tree: Unremarkable Spleen: Unremarkable Pancreas: The pancreas is normal in appearance without focal lesions or abnormal enhancement. Adrenal Glands: Unremarkable Kidneys: No hydronephrosis. Bladder: Unremarkable Bowel: Smallhiatal hernia. The stomach is grossly normal in appearance. Small bowel and colon are normal in caliber and distribution. The appendix is not visualized; however, no secondary findings of acute appendicitis identified. Ascites: Absent Lymphadenopathy: No mesenteric, retroperitoneal or periportal lymphadenopathy. Abdominal wall and Mesentery: Unremarkable. Vasculature: The visualized abdominal aorta is normal in size and caliber. Abdominal and pelvic vessels demonstrate normal enhancement. Pelvic Organs: Unremarkable Musculoskeletal: No aggressive focal bony lesions, acute fractures or dislocation. IMPRESSION: 1. No acute abdominal or pelvic finding. Radiation optimization: All CT scans at this facility use at least one of these dose optimization techniques: automated exposure control mA and/or kV adjustment per patient size (includes targeted exams where dose is matched to clinical indication) or iterative reconstruction.
[2025-03-04 01:18] LABS: LEUKOCYTE ESTERASE ,URINE NEGATIVE (Neg); NITRITES, URINE NEGATIVE (Neg); OCCULT BLOOD,URINE NEGATIVE (Neg)
[2025-03-04 01:21] LABS: UA COLLECTION TYPE VOIDED
[2025-03-04 01:22] LABS: URINE AMPHETAMINE SCREEN POSITIVE (Neg); URINE BARBITUATE SCREEN NEGATIVE (Neg); URINE BENZODIAZEPINES SCREEN NEGATIVE (Neg); URINE CANNABINOID SCREEN NEGATIVE (Neg); URINE COCAINE SCREEN NEGATIVE (Neg); URINE METHADONE SCREEN NEGATIVE (Neg); URINE OPIATE SCREEN NEGATIVE (Neg); URINE PHENCYCLIDINE SCREEN NEGATIVE (Neg)
[2025-03-04 01:46] LABS: HYALINE CASTS 0-3 /LPF (NEGATIVE); MUCUS STRANDS MANY /LPF (Neg); SQUAMOUS EPITHELIAL CELL,UR MANY /LPF (FEW)
[2025-03-04 02:04] VITALS: BP 115/74; PULSE 62; RESP 16; TEMP 97; O2SAT 95
== END 2025-03-04 02:15 | disposition home or self-care (01) ==
LOC: ER 23:22
DX: R10.9 Unspecified abdominal pain (principal); F15.90 Other stimulant use, unspecified, uncomplicated; Z90.710 Acquired absence of both cervix and uterus; Z79.899 Other long term (current) drug therapy; Z56.0 Unemployment, unspecified; Z59.00 Homelessness unspecified; Z72.89 Other problems related to lifestyle
CPT/HCPCS: 36415; 74176; 80053; 80305; 81001; 83690; 84703; 85025; 99284